=== PATIENT | female | born 1980 | race African-American/Black ===

== ENCOUNTER 2024-05-24 06:51 | Day surgery (SDC) | payer MEDICARE ==
[~2024-05-24] VITALS: Ht 172.7 cm; Wt 97.1 kg
[2024-05-24] MEDS ORDERED: FAMOTIDINE 10MG/ML 2ML SDV IV ONE (06:56)
[2024-05-24] MEDS ORDERED: SODIUM CHLORIDE 0.9% 1,000 ML IV ONE ×2 (06:56→08:51)
[2024-05-24] MEDS ORDERED: BUPIVACAINE HCL PF 0.5% 30 ML VIAL ONE (07:14)
[2024-05-24] MEDS ORDERED: SODIUM CHLORIDE 1,000 ML BTL IR ONE (07:15)
[2024-05-24] MEDS ORDERED: STERILE WATER FOR IRRIGATION 500 ML BTL IR ONE (07:15)
[2024-05-24] MEDS ORDERED: ceFAZolin Sodium 2 GM/VIAL SDV ONE (07:22)
[2024-05-24] MEDS ORDERED: SODIUM CHLORIDE 0.9% 100 ML IV ONE (07:23)
[2024-05-24 10:05] VITALS: BP 134/83
[2024-05-24] MEDS ORDERED: PHENYLEPHRINE HCL 10 MG/ML VIAL IV ONE (10:32)
[2024-05-24] MEDS ORDERED: PROPOFOL 200 MG/20 ML VIAL IV ONE (10:32)
[2024-05-24] MEDS ORDERED: DiphenhydrAMINE HCL 50 MG/ML SDV IV ONE (10:32)
== END 2024-05-24 09:58 | disposition home or self-care (01) ==
LOC: ORM 06:51
PROVIDERS: ATTEND Podiatrist Foot & Ankle Surgery
PROC: 0L8P3ZZ Division of Left Lower Leg Tendon, Percutaneous Approach (ICD-10-PCS; principal; 2024-05-24)
PROC: 0QBP0ZZ Excision of Left Metatarsal, Open Approach (ICD-10-PCS; 2024-05-24)
DX: M21.622 Bunionette of left foot (principal); M67.02 Short Achilles tendon (acquired), left ankle; M21.372 Foot drop, left foot; M25.775 Osteophyte, left foot; L03.116 Cellulitis of left lower limb; S91.302A Unspecified open wound, left foot, initial encounter; G82.20 Paraplegia, unspecified; T14.8XXS Other injury of unspecified body region, sequela; X58.XXXA Exposure to other specified factors, initial encounter
CPT/HCPCS: J0690; J1100; J1200